=== PATIENT | female | born 1970 | race Hispanic/Latino ===

== ENCOUNTER → 2024-04-30 | Day surgery (SDC) | payer OTHER ==
[~2024-04-30] MED LIST: ACETAMINOPHEN 1000 MG/100 ML 100 ML IV ONE; CALCIUM ACETAT667 MG PO; DEXAMETHASONE SOD PHOS INJ 4 MG/ML SDV ONE; FENTANYL CITRATE/PF 100MCG/2 ML INJ ONE; LIDOCAINE HCL 2% LOCAL INJ 5 ML SDV VIAL INJ ONE; MIDAZOLAM HCL 2 MG/2 ML VIAL ONE; MULTI-VITAMIN1 EACH PO; NAPROXEN500 MG PO; ONDANSETRON HCL INJ 2MG/ML 2ML 2 MG/ML VIAL ONE; PROPOFOL IV EMULSION 10 MG/ML 20 ML VIAL ONE; TYLENOL EXTRA500 MG PO
[2024-04-30] MEDS: LACTATED RINGER'S 1,000 ML ONE (05:52)
[2024-04-30] MEDS: FENTANYL CITRATE/PF 100MCG/2 ML INJ ONE (08:05)
[2024-04-30 08:40] VITALS: BP 153/76; PULSE 66; RESP 16; O2SAT 94
== END | disposition home or self-care (01) ==
LOC: OR 05:30
PROVIDERS: ATTEND Specialist
DX: G56.03 Carpal tunnel syndrome, bilateral upper limbs (principal); K21.9 Gastro-esophageal reflux disease without esophagitis; M06.9 Rheumatoid arthritis, unspecified; M19.90 Unspecified osteoarthritis, unspecified site; Z01.810 Encounter for preprocedural cardiovascular examination; Z79.1 Long term (current) use of non-steroidal anti-inflammatories (NSAID); Z68.30 Body mass index [BMI] 30.0-30.9, adult
CPT/HCPCS: 93005; J0690; J1100; J2003; J2250; J2405